=== PATIENT | female | born 1950 | race Caucasian/White ===

== ENCOUNTER 2017-04-06 08:53 | Day surgery (SDC) | payer MEDICARE, BC ==
[~2017-04-06 08:53] MED LIST: EPINEPHRINE INJ 1 MG/10 ML DISP.SYRIN ONE; FLUMAZENIL INJ 0.5 MG/5 ML VIAL ONE; GLUCAGON,HUMAN RECOMB 1 MG INJ ONE; GLYCOPYRROLATE INJ 0.4 MG/2 ML VIAL ONE; NALOXONE HCL INJ/PF 0.4 MG/1 ML SDV ONE; ONDANSETRON HCL INJ/PF 4 MG/2 ML SDV ONE
[2017-04-06 09:23] LABS: HEMATOCRIT 41.8 % (36.0-47.0); HEMOGLOBIN 14.2 g/dL (12.0-15.5); HGB HCT DIFFERENCE 0.8; MEAN CORPUSCULAR HEMOGLOBIN 30.6 pg (27.0-33.4); MEAN CORPUSCULAR HGB CONC 33.9 g/dL (32.0-36.0); MEAN CORPUSCULAR VOLUME 90 fl (80-97); RED BLOOD COUNT 4.63 10^6/uL (3.72-5.28); RED CELL DISTRIBUTION WIDTH 13.5 % (11.5-14.0); WHITE BLOOD COUNT 20.6 10^3/uL (4.0-10.5)
[2017-04-06] MEDS: MIDAZOLAM 2 MG/2 ML INJ ONE ×2 (09:45→10:00)
[2017-04-06] MEDS: FENTANYL CITRATE INJ/PF 100 MCG/2 ML AMPUL ONE ×2 (09:47→10:05)
--- NOTE | 2017-04-06 10:46 | Operative Report ---
Operative Report DATE OF SURGERY: 04/06/17 PREOPERATIVE DIAGNOSIS: History of colon polyp POSTOPERATIVE DIAGNOSIS: Colon polyps OPERATION: Colonoscopy with biopsy and fulguration of sigmoid colon polyp. Snare polypectomy of rectal polyp. SURGEON: CHANDRIKA YI ANESTHESIA: Moderate Sedation TISSUE REMOVED OR ALTERED: Sigmoid colon polyp. Rectal polyp. COMPLICATIONS: None ESTIMATED BLOOD LOSS: Minimal INTRAOPERATIVE FINDINGS: Half centimeter sessile polyp at the sigmoid colon. Diminutive polyp at the mid rectum. PROCEDURE: Informed consent was obtained. Patient was brought to the endoscopy suite. IV sedation with Versed and fentanyl was administered. Digital rectal exam revealed no palpable perianal masses. Endoscope was passed via the patient's anus it was fed to the cecum. Procedure was very difficult due to redundancies of her sigmoid colon. The sigmoid colon felt somewhat fixed. The cecum appeared normal as did the right colon. Transverse colon appeared normal with a well-healed anastomosis. Descending colon appeared normal. Sigmoid colon at the midportion demonstrated 1/2 cm sessile polyp which was biopsied and fulgurated. At the mid rectum there was a sessile polyp that was about 1/4 cm in size. It was snare polypectomy need and the specimen retrieved. Patient tolerated procedure well with no apparent complications and was taken to the recovery area in stable condition. History of colon polyps with 2 polyps noted on current colonoscopy. Recommend repeat colonoscopy in 3 years. I will follow-up with the patient in my office in a couple weeks.
--- NOTE | 2017-04-06 10:48 | PDOC DISCHARGE SUMMARY ---
Discharge Summary (SDC) - Discharge Final Diagnosis: Sigmoid colon polyp and rectal polyp. Date of Surgery: 04/06/17 Discharge Date: 04/06/17 Condition: Good Treatment or Instructions: Underwent colonoscopy with polypectomies 2. September discharge patient home when met discharge criteria. Follow-up with me in 2 weeks. Referrals: YASH JENNINGS MD [Primary Care Provider] - Discharge Diet: As Tolerated Discharge Activity: Activity As Tolerated Report the Following to Your Physician Immediately: Increase in Pain, Fever over 101 Degrees, Unusual Bleeding
[2017-04-06 11:29] VITALS: BP 126/95
== END 2017-04-06 11:30 | disposition home or self-care (01) ==
LOC: END 08:53
PROVIDERS: ATTEND Surgery
PROC: 0DBN8ZX Excision of Sigmoid Colon, Via Natural or Artificial Opening Endoscopic, Diagnostic (ICD-10-PCS; principal; 2017-04-06 10:30)
PROC: 0DBP8ZX Excision of Rectum, Via Natural or Artificial Opening Endoscopic, Diagnostic (ICD-10-PCS; 2017-04-06 10:30)
PROC: 0D5N8ZZ Destruction of Sigmoid Colon, Via Natural or Artificial Opening Endoscopic (ICD-10-PCS; 2017-04-06 10:30)
DX: Z12.11 Encounter for screening for malignant neoplasm of colon (principal); K63.5 Polyp of colon; C91.10 Chronic lymphocytic leukemia of B-cell type not having achieved remission; I10 Essential (primary) hypertension; E78.00 Pure hypercholesterolemia, unspecified; Z88.5 Allergy status to narcotic agent; Z79.899 Other long term (current) drug therapy
CPT/HCPCS: 45384; 45385; 36415; 85027; 88305 ×2; J2250; J3010; 45380; J0171; J1610; J2310; J2405; J3490

== ENCOUNTER 2017-05-02 16:15 | Emergency (ER) | payer MEDICARE, BC ==
--- NOTE | 2017-05-02 16:45 | ER Document Report ---
ED Medical Screen (RME) - General Chief Complaint: Blood Pressure Problem Stated Complaint: HAND NUMBNESS, BLOOD PRESSURE ISSUES Time Seen by Provider: 05/02/17 16:42 Mode of Arrival: Ambulatory Information source: Patient TRAVEL OUTSIDE OF THE [place] IN LAST 30 DAYS: No - HPI Patient complains to provider of: R hand, perioral numbness Onset: This morning - pt. states that her BP readings have been elevated since this am -- also developed numbness in R hand and periorally. denies CP - Related Data Allergies/Adverse Reactions: oxycodone Adverse Reaction (Intermediate, Verified 04/06/17 08:56) VOMITING Past Medical History - Social History Chew tobacco use (# tins/day): No Frequency of alcohol use: Occasional Drug Abuse: None - Past Medical History Cardiac Medical History: Reports: Hx Hypertension Denies: Hx Atrial Fibrillation, Hx Congestive Heart Failure, Hx Coronary Artery Disease, Hx Heart Attack, Hx Hypercholesterolemia, Hx Peripheral Vascular Disease, Hx Pulmonary Embolism, Hx Heart Murmur Pulmonary Medical History: Reports: Hx Bronchitis - MAY 2015 Denies: Hx Asthma, Hx COPD, Hx Pneumonia, Hx Respiratory Failure, Hx Sleep Apnea, Hx Tuberculosis Neurological Medical History: Denies: Hx Cerebrovascular Accident, Hx Seizures Endocrine Medical History: Denies: Hx Graves' Disease, Hx Hyperthyroidism, Hx Hypothyroidism Renal/ Medical History: Denies: Hx End Stage Renal Disease, Hx Kidney Stones, Hx Ovarian Cysts, Hx Peritoneal Dialysis, Hx Pelvic Inflammatory Disease Malignancy Medical History: Reports: Hx Leukemia - CLL, NO TREATMENT JUST MONITORING. Denies: Hx Breast Cancer, Hx Cervical Cancer, Hx Lung Cancer, Hx Ovarian Cancer GI Medical History: Reports: Hx Gastroesophageal Reflux Disease. Denies: Hx Crohn's Disease, Hx Hiatal Hernia, Hx Irritable Bowel, Hx Liver Failure, Hx Pancreatitis, Hx Ulcer Musculoskeltal Medical History: Reports Hx Arthritis - HAND, Denies Hx Fibromyalgia, Denies Hx Multiple Sclerosis, Denies Hx Muscular Dystrophy Psychiatric Medical History: Denies: Hx Bipolar Disorder, Hx Dementia, Hx Depression, Hx Post Traumatic Stress Disorder, Hx Schizophrenia Traumatic Medical History: Reports: Hx Fractures - BROKEN LEFT ARM WHEN IN GRADE 7 Infectious Medical History: Denies: Hx HIV Past Surgical History: Reports: Hx Breast Surgery - Breast biopsy, Hx Hysterectomy. Denies: Hx Appendectomy, Hx Bowel Surgery, Hx Section, Hx Cholecystectomy, Hx Colostomy, Hx Coronary Artery Bypass Graft, Hx Gastric Bypass Surgery, Hx Herniorrhaphy, Hx Mastectomy, Hx Pacemaker, Hx Tonsillectomy , Hx Tubal Ligation - Immunizations Hx Diphtheria, Pertussis, Tetanus Vaccination: Yes Influenza Administration Date for 02/2017 - 07/2017 Season: 03/01/17 Physical Exam - Vital signs Vitals: Temp Pulse Resp BP Pulse Ox 98.6 F 101 H 18 155/99 H 98 05/02/17 16:30 05/02/17 16:30 05/02/17 16:30 05/02/17 16:30 05/02/17 16:30 Course - Vital Signs Vital signs: Temp Pulse Resp BP Pulse Ox 98.6 F 101 H 18 155/99 H 98 05/02/17 16:30 05/02/17 16:30 05/02/17 16:30 05/02/17 16:30 05/02/17 16:30
[2017-05-02 17:16] LABS: HEMATOCRIT 42.4 % (36.0-47.0); HEMOGLOBIN 14.3 g/dL (12.0-15.5); HGB HCT DIFFERENCE 0.5; MEAN CORPUSCULAR HEMOGLOBIN 30.8 pg (27.0-33.4); MEAN CORPUSCULAR HGB CONC 33.6 g/dL (32.0-36.0); MEAN CORPUSCULAR VOLUME 92 fl (80-97); RED BLOOD COUNT 4.63 10^6/uL (3.72-5.28); RED CELL DISTRIBUTION WIDTH 13.7 % (11.5-14.0); WHITE BLOOD COUNT 18.9 10^3/uL (4.0-10.5)
--- NOTE | 2017-05-02 17:19 | RADIOLOGY REPORT (SQ) ---
EXAM DESCRIPTION: CT HEAD WITHOUT COMPLETED DATE/TIME: 05/02/2017 5:05 pm REASON FOR STUDY: R hand, perioral numbness COMPARISON: None. TECHNIQUE: Axial images acquired through the brain without intravenous contrast. Images reviewed wi th bone, brain and subdural windows. Images stored on PACS. All CT scanners at this facility use dose modulation, iterative reconstruction, and/or weight based d osing when appropriate to reduce radiation dose to as low as reasonably achievable (ALARA). [facility]: Dose Right [facility]: CareDose [facility]: Dose Right [facility]: Teradose 4D [facility]: Car reviews RADIATION DOSE: mGy. LIMITATIONS: None. FINDINGS: VENTRICLES: Age-appropriate. CEREBRUM: No masses. No hemorrhage. No midline shift. Areas of low density in the white matter mos t likely due to chronic micro-vascular ischemic change. No evidence for acute infarction. CEREBELLUM: No masses. No hemorrhage. No alteration of density. No evidence for acute infarction. EXTRAAXIAL SPACES: Mild age-related involutional change. No fluid collections. No masses. ORBITS AND GLOBE: No intra- or extraconal masses. Normal contour of globe without masses. CALVARIUM: No fracture. PARANASAL SINUSES: No fluid or mucosal thickening. SOFT TISSUES: No mass or hematoma. OTHER: No other significant finding. IMPRESSION: MILD CHRONIC CHANGES MICROVASCULAR ISCHEMIA. NO ACUTE PROCESS. EVIDENCE OF ACUTE STROKE: NO. TECHNICAL DOCUMENTATION: JOB ID: [id number] [id number] Quality ID # [id number]: Final reports with documentation of one or more dose reduction techniques (e.g., Au tomated exposure control, adjustment of the mA and/or kV according to patient size, use of iterative reconstruction technique) 2010 [email or web address]- All Rights Reserved
[2017-05-02 17:31] LABS: ALANINE AMINOTRANSFERASE 77 U/L (9-52); ALBUMIN 4.6 g/dL (3.5-5.0); ALKALINE PHOSPHATASE 117 U/L (38-126); ANION GAP 14 (5-19); ASPARTATE AMINO TRANSFERASE 48 U/L (14-36); BILIRUBIN,DIRECT 0.3 mg/dL (0.0-0.4); BILIRUBIN,TOTAL 0.9 mg/dL (0.2-1.3); BLOOD UREA NITROGEN 14 mg/dL (7-20); CALCIUM 9.3 mg/dL (8.4-10.2); CARBON DIOXIDE 24 mmol/L (22-30); CHLORIDE 104 mmol/L (98-107); CREATINE KINASE 89 U/L (30-135); CREATININE RESULT 0.72 mg/dL (0.52-1.25); GLUCOSE 89 mg/dL (75-110); POTASSIUM 3.5 mmol/L (3.6-5.0); SODIUM 141.7 mmol/L (137-145); TOTAL PROTEIN 7.5 g/dL (6.3-8.2)
[2017-05-02 17:33] LABS: BASOPHILS % (MANUAL) 0 % (0-2); EOSINOPHILS % (MANUAL) 0 % (0-6); TOTAL CELLS COUNTED 100
[2017-05-02 17:35] LABS: HYPOCHROMASIA SLIGHT; LYMPHOCYTES % (MANUAL) 65 % (13-45)
[2017-05-02 17:43] LABS: CREATINE KINASE MB 0.88 ng/mL (<4.55)
--- NOTE | 2017-05-02 17:43 | EKG REPORT ---
SEVERITY:- BORDERLINE ECG - SINUS RHYTHM BORDERLINE T WAVE ABNORMALITIES : Confirmed by: Delroy Tavarez MD 02-May-2017 17:42:05
[2017-05-02 17:50] LABS: TROPONIN I < 0.012 ng/mL
[2017-05-02] MEDS ORDERED: METOCLOPRAMIDE HCL INJ/PF 10 MG/2 ML SDV IV ONE (19:33)
[2017-05-02] MEDS ORDERED: DIPHENHYDRAMINE HCL 50 MG/ML VIAL IV ONE (19:33)
[2017-05-02] MEDS ORDERED: KETOROLAC TROMETHAMINE INJ/PF 30 MG/1 ML SDV IV ONE (19:34)
--- NOTE | 2017-05-02 19:37 | ER Document Report ---
ED General - General Chief Complaint: Blood Pressure Problem Stated Complaint: HAND NUMBNESS, BLOOD PRESSURE ISSUES Time Seen by Provider: 05/02/17 16:42 Mode of Arrival: Ambulatory Notes: Patient is a 66-year-old female who comes emergency department for chief complaint of headache, pains along the right side of her neck, pain when turning her head side to side, she also states that she felt tingling in her lips earlier and she felt like her hand was swollen earlier although this is intermittent. She denies any numbness, weakness, visual changes, fever, head trauma. Symptoms started this morning. Past medical history of hypertension, she states she checked her blood pressure and it was elevated although she had a "bad headache at the time". She states she has actually had a headache for 3 days now. She does not get frequent headaches. Past medical history of CLL, this is monitored and she is currently on no treatment for it. She takes amlodipine 5 mg for blood pressure and she takes Zantac for GERD. No other medical history reported other than hysterectomy. at bedside. TRAVEL OUTSIDE OF THE [place] IN LAST 30 DAYS: No - Related Data Allergies/Adverse Reactions: oxycodone Adverse Reaction (Intermediate, Verified 04/06/17 08:56) VOMITING Past Medical History - General Information source: Patient - Social History Smoking Status: Never Smoker Chew tobacco use (# tins/day): No Frequency of alcohol use: Occasional Drug Abuse: None Lives with: Family Family History: Reviewed & Not Pertinent Patient has suicidal ideation: No Patient has homicidal ideation: No - Past Medical History Cardiac Medical History: Reports: Hx Hypertension Denies: Hx Atrial Fibrillation, Hx Congestive Heart Failure, Hx Coronary Artery Disease, Hx Heart Attack, Hx Hypercholesterolemia, Hx Peripheral Vascular Disease, Hx Pulmonary Embolism, Hx Heart Murmur Pulmonary Medical History: Reports: Hx Bronchitis - MAY 2015 Denies: Hx Asthma, Hx COPD, Hx Pneumonia, Hx Respiratory Failure, Hx Sleep Apnea, Hx Tuberculosis Neurological Medical History: Denies: Hx Cerebrovascular Accident, Hx Seizures Endocrine Medical History: Denies: Hx Graves' Disease, Hx Hyperthyroidism, Hx Hypothyroidism Renal/ Medical History: Denies: Hx End Stage Renal Disease, Hx Kidney Stones, Hx Ovarian Cysts, Hx Peritoneal Dialysis, Hx Pelvic Inflammatory Disease Malignancy Medical History: Reports: Hx Leukemia - CLL, NO TREATMENT JUST MONITORING. Denies: Hx Breast Cancer, Hx Cervical Cancer, Hx Lung Cancer, Hx Ovarian Cancer GI Medical History: Reports: Hx Gastroesophageal Reflux Disease. Denies: Hx Crohn's Disease, Hx Hiatal Hernia, Hx Irritable Bowel, Hx Liver Failure, Hx Pancreatitis, Hx Ulcer Musculoskeltal Medical History: Reports Hx Arthritis - HAND, Denies Hx Fibromyalgia, Denies Hx Multiple Sclerosis, Denies Hx Muscular Dystrophy Psychiatric Medical History: Denies: Hx Bipolar Disorder, Hx Dementia, Hx Depression, Hx Post Traumatic Stress Disorder, Hx Schizophrenia Traumatic Medical History: Reports: Hx Fractures - BROKEN LEFT ARM WHEN IN GRADE 7 Infectious Medical History: Denies: Hx HIV Past Surgical History: Reports: Hx Abdominal Surgery - colon resection, Hx Breast Surgery - Breast biopsy, Hx Hysterectomy. Denies: Hx Appendectomy, Hx Bowel Surgery, Hx Section, Hx Cholecystectomy, Hx Colostomy, Hx Coronary Artery Bypass Graft, Hx Gastric Bypass Surgery, Hx Herniorrhaphy, Hx Mastectomy, Hx Pacemaker, Hx Tonsillectomy, Hx Tubal Ligation - Immunizations Hx Diphtheria, Pertussis, Tetanus Vaccination: Yes Hx Pneumococcal Vaccination: 12/30/15 Review of Systems - Review of Systems Constitutional: No symptoms reported EENT: No symptoms reported Cardiovascular: No symptoms reported Respiratory: No symptoms reported Gastrointestinal: No symptoms reported Genitourinary: No symptoms reported Female Genitourinary: No symptoms reported Musculoskeletal: No symptoms reported Skin: No symptoms reported Hematologic/Lymphatic: No symptoms reported Neurological/Psychological: See HPI Physical Exam - Vital signs Vitals: Temp Pulse Resp BP Pulse Ox 98.6 F 101 H 18 155/99 H 98 05/02/17 16:30 05/02/17 16:30 05/02/17 16:30 05/02/17 16:30 05/02/17 16:30 Interpretation: Normal - General General appearance: Appears well, Alert - HEENT Head: Normocephalic, Atraumatic Eyes: Normal Pupils: PERRL - Respiratory Respiratory status: No respiratory distress Chest status: Nontender Breath sounds: Normal Chest palpation: Normal - Cardiovascular Rhythm: Regular Heart sounds: Normal auscultation Murmur: No - Abdominal Inspection: Normal Distension: No distension Bowel sounds: Normal Tenderness: Nontender Organomegaly: No organomegaly - Back Back: Tender - Tenderness with palpation of the right paracervical musculature, pain with lateral range of motion, worse to the right, slightly decreased range of motion laterally. No nuchal rigidity, no midline spinal tenderness, normal upper and lower extremity range of motion, strength, distal neurovascular exam. No saddle anesthesia. - Extremities General upper extremity: Normal inspection, Nontender, Normal color, Normal ROM , Normal temperature General lower extremity: Normal inspection, Nontender, Normal color, Normal ROM , Normal temperature, Normal weight bearing. 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 No: Altered light touch, 2-pt discrimination - Psychological Associated symptoms: Normal affect, Normal mood - Skin Skin Temperature: Warm Skin Moisture: Dry Skin Color: Normal Course - Re-evaluation Re-evalutation: Patient does not have any numbness in her right hand, no swelling, she clarifies that it is in intermittent discomfort that she is feeling. Appears to be musculoskeletal. She also has intermittent discomfort in her right arm up towards the humerus. Does not appear to be from a central lesion. Vague complaints otherwise except she definitely has paracervical tenderness on the right side, she does have headache symptoms. CAT scan from triage reviewed and is unremarkable, laboratory workup unremarkable. Patient was given small doses of Reglan, Benadryl, and Toradol. On reevaluation she is smiling, she states her headache is completely gone, she states she is very grateful for her treatment. She asks to leave. Blood pressure is now unremarkable. Suspect elevated blood pressure was secondary to her headache, suspect headache was tension headache with triggered migraine. No evidence of CVA, ICH, SAH, or meningitis. No nuchal rigidity or fever. Patient is asymptomatic on reevaluation. Patient discharged with medications after discussing different options about treatment. Discussed follow-up recommendations and return precautions. Patient states satisfaction and agreement. - Vital Signs Vital signs: Temp Pulse Resp BP Pulse Ox 97.8 F 80 18 141/75 H 100 05/02/17 21:20 05/02/17 21:20 05/02/17 21:20 05/02/17 21:20 05/02/17 21:20 - Laboratory Result Diagrams: 05/02/17 16:55 05/02/17 16:55 Laboratory results interpreted by me: 05/02/17 05/02/17 16:55 16:55 WBC 18.9 H Seg Neuts % (Manual) 32 L Lymphocytes % (Manual) 65 H Abs Lymphs (Manual) 12.3 H Potassium 3.5 L AST 48 H ALT 77 H Discharge - Discharge Clinical Impression: Neck pain Headache Qualifiers: Headache type: unspecified Headache chronicity pattern: acute headache Intractability: not intractable Qualified Code(s): R51 - Headache Condition: Stable Disposition: HOME, SELF-CARE Additional Instructions: Your CAT scan of the head performed today was normal. Lab work does not show any concerning abnormalities. Physical examination, symptoms, and response to treatment are most consistent with tension headache and migraine. Follow-up with primary care for additional management. If you have headaches I recommend applying heat to your neck, consider ibuprofen and the Zofran, you can also take the Red [place] for pain but this can also cause rebound headaches and constipation so use with caution. Return the emergency department for any concerning or worsening symptoms including severe headache, vomiting, weakness on one side of your body, visual changes, or any other concerning symptoms. Prescriptions: Hydrocodone/Acetaminophen [Red Wing 5-325 mg Tablet] 1 tab PO ASDIR #8 tablet Ondansetron [Zofran Odt 4 mg Tablet] 1 tab PO Q4H PRN #15 tab.rapdis PRN Reason: For Nausea/Vomiting
[2017-05-02 21:21] VITALS: BP 141/75
== END 2017-05-02 21:59 | disposition home or self-care (01) ==
LOC: ER 16:15
DX: M54.2 Cervicalgia (principal); R51 Headache; I10 Essential (primary) hypertension; R20.0 Anesthesia of skin; Z90.710 Acquired absence of both cervix and uterus
CPT/HCPCS: 93005; 99284; 96374; 96375; 36415; 82553; 82550; 85025; 80053; 84484; 70450; 93010; J1200; J1885; J2765

== ENCOUNTER 2018-11-28 23:58 | Emergency (ER) | payer MEDICARE, BC ==
--- NOTE | 2018-11-29 01:10 | RADIOLOGY REPORT (SQ) ---
CLINICAL HISTORY: injury COMPARISON: None. TECHNIQUE: XR RIBS UNILATERAL WITH CHEST 11/29/2018 12:00 AM CDT FINDINGS: Cardiac silhouette is normal in size. Lungs are clear without consolidation, atelectasis, mass or edema. There is no pleural effusion. There is no pneumothorax. There is a nondisplaced fracture of the anterior right eighth rib. IMPRESSION: Right eighth rib fracture.
[2018-11-29] MEDS ORDERED: LIDOCAINE 5% (700 MG) TRANSDERMAL ADH..PATCH TP ONE (01:28)
[2018-11-29] MEDS ORDERED: TRAMADOL HCL 50 MG TABLET PO ONE (01:58)
--- NOTE | 2018-11-29 01:58 | ER Document Report ---
ED General - General Chief Complaint: Fall Stated Complaint: BACK INJURY Time Seen by Provider: 11/29/18 01:27 Primary Care Provider: JC GOODRICH DO [NO LOCAL MD] - Follow up in 3-5 days (or your primary care. ) Notes: Patient is a 68-year-old female that presents to the emergency department for chief complaint of right rib pain after fall. Patient states that she slipped in the bathtub around 10:30 PM, and hit her right side on the side of the tub, and since then has been having pain with taking a deep breath in the right side. She currently rates the pain as a 4 out of 10, but is improved with Lidoderm p atch. She denies any nausea, vomiting, headache or head injury. Denies loss of consciousness or neck pain. Denies any numbness, weakness or tingling in any extremity. The pain is worse with taking a deep breath, and is improved at rest. No other complaints at this time, denies any other injuries. Denies any upper or lower extremity pain. She has been ambulatory since the injury. Past Medical History: Hypertension Past Surgical History: Colon resection Social History: Denies current tobacco, alcohol or drug use. Family History: Reviewed and noncontributory for presenting illness Allergies: Reviewed, see documented allergy list. REVIEW OF SYSTEMS: Other than noted above, the 12 point review of systems was reviewed with the patient and were negative, all pertinent findings are included in the HPI. PHYSICAL EXAMINATION: Vital signs reviewed, nursing noted reviewed. GENERAL: Well-appearing, well-nourished and in no acute distress. HEAD: Atraumatic, normocephalic. EYES: Eyes appear normal, extraocular movements intact, sclera anicteric, conjunctiva are normal. ENT: nares patent, oropharynx clear without exudates. Moist mucous membranes. NECK: Normal range of motion, supple without lymphadenopathy LUNGS: Breath sounds clear to auscultation bilaterally and equal. No wheezes rales or rhonchi. Right rib tenderness, no evidence of ecchymosis or bruising. HEART: Regular rate and rhythm without murmurs ABDOMEN: Soft, nontender, normoactive bowel sounds. No rebound, guarding, or rigidity. No masses appreciated. EXTREMITIES: Nontender, good range of motion, no pitting or edema. NEUROLOGICAL: No focal neurological deficits. Moves all extremities spontaneously Motor and sensory grossly intact on exam. PSYCH: Normal mood, normal affect. SKIN: Warm, Dry, normal turgor, no rashes or lesions noted on exposed skin TRAVEL OUTSIDE OF THE [place] IN LAST 30 DAYS: No - Related Data Allergies/Adverse Reactions: oxycodone Adverse Reaction (Intermediate, Verified 04/06/17 08:56) VOMITING Past Medical History - Social History Smoking Status: Never Smoker Family History: Reviewed & Not Pertinent - Past Medical History Cardiac Medical History: Reports: Hx Hypertension Denies: Hx Atrial Fibrillation, Hx Congestive Heart Failure, Hx Coronary Artery Disease, Hx Heart Attack, Hx Hypercholesterolemia, Hx Peripheral Vascular Disease, Hx Pulmonary Embolism, Hx Heart Murmur Pulmonary Medical History: Reports: Hx Bronchitis - MAY 2015 Denies: Hx Asthma, Hx COPD, Hx Pneumonia, Hx Respiratory Failure, Hx Sleep Apnea, Hx Tuberculosis Neurological Medical History: Denies: Hx Cerebrovascular Accident, Hx Seizures Endocrine Medical History: Denies: Hx Graves' Disease, Hx Hyperthyroidism, Hx Hypothyroidism Renal/ Medical History: Denies: Hx End Stage Renal Disease, Hx Kidney Stones, Hx Ovarian Cysts, Hx Peritoneal Dialysis, Hx Pelvic Inflammatory Disease Malignancy Medical History: Reports: Hx Leukemia - CLL, NO TREATMENT JUST MONITORING. Denies: Hx Breast Cancer, Hx Cervical Cancer, Hx Lung Cancer, Hx Ovarian Cancer GI Medical History: Reports: Hx Gastroesophageal Reflux Disease. Denies: Hx Crohn's Disease, Hx Hiatal Hernia, Hx Irritable Bowel, Hx Liver Failure, Hx Pancreatitis, Hx Ulcer Musculoskeletal Medical History: Reports Hx Arthritis - HAND, Denies Hx Fibromyalgia, Denies Hx Multiple Sclerosis, Denies Hx Muscular Dystrophy, Denies Hx Systemic Lupus Erythematosus Psychiatric Medical History: Denies: Hx Bipolar Disorder, Hx Dementia, Hx Depression, Hx Post Traumatic Stress Disorder, Hx Schizophrenia Traumatic Medical History: Reports: Hx Fractures - BROKEN LEFT ARM WHEN IN GRADE 7 Infectious Medical History: Denies: Hx HIV Past Surgical History: Reports: Hx Abdominal Surgery - colon resection, Hx Breast Surgery - Breast biopsy, Hx Hysterectomy. Denies: Hx Appendectomy, Hx Bowel Surgery, Hx Section, Hx Cholecystectomy, Hx Colostomy, Hx Coronary Artery Bypass Graft, Hx Gastric Bypass Surgery, Hx Herniorrhaphy, Hx Mastectomy, Hx Pacemaker, Hx Tonsillectomy, Hx Tubal Ligation - Immunizations Hx Diphtheria, Pertussis, Tetanus Vaccination: Yes Hx Pneumococcal Vaccination: 12/30/15 Physical Exam - Vital signs Vitals: Temp Pulse Resp BP Pulse Ox 97.9 F 80 24 H 147/89 H 96 11/29/18 00:10 11/29/18 00:10 11/29/18 00:10 11/29/18 00:10 11/29/18 00:10 Course - Re-evaluation Re-evalutation: Patient seen and examined vital signs reviewed. Patient was evaluated and treated as appropriate for the patient's presenting symptoms and complaint, with consideration of any critical or life threatening conditions that may be associated with their obtained history and exam as noted above. Patient was treated with Lidoderm patch, tramadol, and incentive spirometer The patient was re-evaluated and was stable Evaluation was most consistent with right eighth rib fracture, noted on chest x- ray with rib films, will prescribe the patient tramadol, Lidoderm patches, advised using incentive spirometer, monitor for signs of pneumonia which she was agreeable to. Plan of care was discussed with the patient at this point, after careful consideration I feel that that patient can be discharged from the emergency department, the patient was educated treatments and reasons to return to the emergency department based on their presumed diagnosis as noted above, they were advised to followup with a primary care physician in 2-3 days. Patient was agreeable to plan of care. *Note is created using voice recognition software and may contain spelling, syntax or grammatical errors. Ribs w/Chest X-Ray 11/29/18 00:00 IMPRESSION: Right eighth rib fracture. - Vital Signs Vital signs: Temp Pulse Resp BP Pulse Ox 97.8 F 84 20 123/76 97 11/29/18 02:22 11/29/18 02:22 11/29/18 02:22 11/29/18 02:22 11/29/18 02:22 Discharge - Discharge Clinical Impression: Rib fracture Qualifiers: Encounter type: initial encounter Rib fracture type: single rib Fracture type: closed Laterality: right Qualified Code(s): S22.31XA - Fracture of one rib, r ight side, initial encounter for closed fracture Condition: Stable Disposition: HOME, SELF-CARE Instructions: Rib Injuries and Fractures ([facility]) Additional Instructions: Please use the incentive spirometer, try to use it every 5 to 10 minutes, throughout the day, to help avoid pneumonia, please fill the prescription for the tramadol, to help reduce pain, as well as the Lidoderm patches, these are left on for 12 hours and remove for 12 hours. You may also take [id number] Aleve, 2 tablets, every 12 hours, to help minimize pain, you can also take extra strength Tylenol, 2 tablets, every 8 hours, this can be taken in combination with the other medications if needed. Prescriptions: Lidocaine [Lidoderm 5% (700 mg) Transdermal Patch] 1 patch TP DAILY #7 adh..patch RX: Tramadol HCl [Ultram] 50 mg PO Q6H PRN #20 tablet PRN Reason: rib pain Referrals: JC GOODRICH DO [NO LOCAL MD] - Follow up in 3-5 days (or your primary care. )
[2018-11-29 02:28] VITALS: BP 123/76
== END 2018-11-29 02:35 | disposition home or self-care (01) ==
LOC: ER 23:58
DX: S22.31XA Fracture of one rib, right side, initial encounter for closed fracture (principal); W18.2XXA Fall in (into) shower or empty bathtub, initial encounter; Y93.E1 Activity, personal bathing and showering; I10 Essential (primary) hypertension
CPT/HCPCS: 99283; 71101; A9270